=== PATIENT | male | born 1980 | race Caucasian/White ===

== ENCOUNTER 2021-08-08 00:59 | Emergency (ER) | payer SELFPAY ==
[~2021-08-08] VITALS: Ht 177.8 cm; Wt 124.7 kg
--- NOTE | 2021-08-08 01:10 | NUR ---
from home for glf in am, fell on head and r arm, denies KO not on any blood thinners, c/o rt arm pain, able to move, but painful. PT A/Ox4. Tolerating R/A well with no SOB.
[2021-08-08] MEDS ORDERED: oxyCODONE/APAP (5/325 MG) 1 UDTAB TABLET ONE (02:21)
[2021-08-08] MEDS ORDERED: ONDANSETRON 4 MG TAB.RAPDIS ONE (02:22)
--- NOTE | 2021-08-08 02:27 | NUR ---
PT TAKEN FOR CT SCAN
[2021-08-08] MEDS ORDERED: ONDANSETRON 4 MG TAB.RAPDIS SL ONE (02:30)
[2021-08-08] MEDS ORDERED: oxyCODONE/APAP (5/325 MG) 1 UDTAB TABLET PO ONE (02:30)
[2021-08-08 03:30] LABS: BASOPHILS # (AUTO) 0.1 K/uL (0.0-0.2); BASOPHILS % (AUTO) 0.6 % (0.0-2.0); EOSINOPHILS % (AUTO) 0.8 % (0.0-6.0); HEMATOCRIT 44 % (39-51); HEMOGLOBIN 15.2 g/dL (13.5-17.5); LYMPHOCYTES # (AUTO) 2.3 K/uL (0.8-4.8); LYMPHOCYTES % (AUTO) 18.3 % (20.0-44.0); MEAN CORPUSCULAR HGB CONC 34 g/dl (31.0-36.0); MEAN CORPUSCULAR VOLUME 84 fL (80-96); MONOCYTES # (AUTO) 0.9 K/uL (0.1-1.30); MONOCYTES % (AUTO) 7.3 % (2.0-12.0); NEUTROPHILS # (AUTO) 9.2 K/uL (1.8-8.9); PLATELET COUNT (AUTO) 262 K/uL (150-450); RED BLOOD CELL COUNT(AUTO) 5.28 MIL/uL (4.5-6.0); WHITE BLOOD COUNT (AUTO) 12.6 K/uL (4.3-11.0)
[2021-08-08 04:22] LABS: ALBUMIN 3.8 g/dL (3.4-5.0); BILIRUBIN,DIRECT 0.1 mg/dL (0.0-0.2); CALCIUM, SERUM 9.4 mg/dL (8.5-10.1); CREATININE 1.1 mg/dL (0.6-1.3); POTASSIUM 4.2 mmol/L (3.5-5.1); TOTAL PROTEIN, SERUM 7.8 g/dL (6.4-8.2)
--- NOTE | 2021-08-08 05:49 | NUR ---
MICK COLLECTED AND SENT TO LAB
--- NOTE | 2021-08-08 06:54 | NUR ---
ADLS DONE. PT'S GAIT IS UNSTEADY. OFFERED PT URINAL.
--- NOTE | 2021-08-08 07:24 | NUR ---
Dr. Allen on the phone with Dr. Cope
--- NOTE | 2021-08-08 07:50 | NUR ---
PT SIGNED CONSENT FORM FOR RIGHT SHOULDER REDUCTION UNDER MODERATE SEDATION. VERBALIZED UNDERSTANDING OF RISKS VS BENEFITS.
[2021-08-08] MEDS ORDERED: PROPOFOL 40 ML IV ONE (07:56)
[2021-08-08] MEDS ORDERED: PROPOFOL 200 MG/20 ML VIAL IV ONE (08:00)
--- NOTE | 2021-08-08 08:05 | NUR ---
0801 100 mg iv push 0802 50 mg iv push left hand g 20 08 reduced and immobilizer on 803x-ray at the bedside
--- NOTE | 2021-08-08 08:06 | NUR ---
IMPREGNATION OPERATOR AT PT'S BEDSIDE
[2021-08-08] MEDS ORDERED: IBUP-1957 PO (08:18)
--- NOTE | 2021-08-08 08:25 | NUR ---
THE PATIENT IS AWAKE, ALERT AND ORIENTED X4. DENIES ANY PAIN AT THIS TIME. THE MONITOR ATTACHED. WILL CONTINUE TO MONITOR THE PATIENT.
[2021-08-08 09:26] VITALS: BP 133/81
--- NOTE | 2021-08-08 09:26 | NUR ---
Patient discharged to home in stable condition. Written and verbal after care instructions given. Patient verbalizes understanding of instruction.IV removed. Catheter intact and site benign. Pressure and 4x4 applied to site. No bleeding noted.
== END 2021-08-08 09:26 | disposition home or self-care (01) ==
LOC: ER 01:08
DX: S43.014A Anterior dislocation of right humerus, initial encounter (principal); S42.291A Other displaced fracture of upper end of right humerus, initial encounter for closed fracture; S09.90XA Unspecified injury of head, initial encounter; W18.30XA Fall on same level, unspecified, initial encounter; Y92.039 Unspecified place in apartment as the place of occurrence of the external cause; E11.9 Type 2 diabetes mellitus without complications; Z79.82 Long term (current) use of aspirin; Z20.822 Contact with and (suspected) exposure to COVID-19
CPT/HCPCS: 23650; 36415; 70450; 73030 ×2; 80048; 80076; 85025; 85730; 87426; 99152; 99285; C9803; J2704; J7030; Q0162; G0500